=== PATIENT | female | born 1970 | race Caucasian/White ===

== ENCOUNTER 2017-07-29 09:24 | Inpatient (IN) | payer MEDICAID ==
[~2017-07-29] VITALS: Ht 157.5 cm; Wt 106.1 kg
[2017-07-29 10:13] LABS: CALCIUM 8.7 mg/dL (8.5-10.1); CARBON DIOXIDE 22.4 mmol/L (21-32); CHLORIDE SERUM 102 mmol/L (98-107); CREATININE SERUM 0.6 mg/dL (0.6-1.0); GFR1 > 60 mL/min; GLUCOSE SERUM 204 mg/dL (74-106); POTASSIUM SERUM 3.7 mmol/L (3.5-5.1); SODIUM SERUM 137 mmol/L (136-145)
[2017-07-29 10:17] LABS: ALBUMIN 3.3 g/dL (3.4-5.0); ALKALINE PHOSPHATASE 89 U/L (46-116); ALT/SGPT 19 U/L (14-59); AST/SGOT 17 U/L (15-37); BILIRUBIN TOTAL 0.32 mg/dL (0.20-1.00); TOTAL PROTEIN, SERUM 7.9 g/dL (6.4-8.2)
[2017-07-29 10:32] LABS: BASOPHIL % 0.4 % (0-2); PLATELET COUNT 309 x10^3mcL (130-400); RED CELL DISTRIBUTION WIDTH 14.3 % (11.5-14.5)
[2017-07-29 11:26] LABS: AMPHETAMINE QUAL UR NONE DETECTED (NEG <=1000)
[2017-07-29 11:29] LABS: BASOPHIL % 0.3 % (0-2); PLATELET COUNT 292 x10^3mcL (130-400); RED CELL DISTRIBUTION WIDTH 14.1 % (11.5-14.5)
[2017-07-29 11:48] LABS: UA SPECIFIC GRAVITY 1.025 (1.005-1.035); microscopic required? YES; urine erythrocyte 1+ (NEGATIVE)
[2017-07-29] MEDS ORDERED: FLUOXETINE HYDR20 M2 PO (15:40)
[2017-07-29 16:22] LABS: FREE T4 1.11 ng/dL (0.76-1.46); FREE THYROXINE INDEX 2.4 ug/dL (1.4-4.5); T4(THYROXINE) 9.3 ug/dL (4.7-13.3)
[2017-07-29 16:35] LABS: MAGNESIUM 1.7 mg/dL (1.8-2.4)
[2017-07-29 16:48] LABS: T3 TOTAL 0.86 ng/mL
[2017-07-29 17:40] LABS: CALCIUM 8.3 mg/dL (8.5-10.1); CARBON DIOXIDE 22.1 mmol/L (21-32); CHLORIDE SERUM 107 mmol/L (98-107); CREATININE SERUM 0.6 mg/dL (0.6-1.0); GFR1 > 60 mL/min; GLUCOSE SERUM 126 mg/dL (74-106); POTASSIUM SERUM 3.8 mmol/L (3.5-5.1); SODIUM SERUM 142 mmol/L (136-145)
[2017-07-29 19:38] VITALS: BP 147/67
[2017-07-29 19:55] LABS: CALCIUM 8.3 mg/dL (8.5-10.1); CARBON DIOXIDE 22.5 mmol/L (21-32); CHLORIDE SERUM 106 mmol/L (98-107); CREATININE SERUM 0.6 mg/dL (0.6-1.0); GFR1 > 60 mL/min; GLUCOSE SERUM 123 mg/dL (74-106); POTASSIUM SERUM 3.7 mmol/L (3.5-5.1); SODIUM SERUM 140 mmol/L (136-145)
[2017-07-29 19:59] VITALS: Ht 157.5 cm; Wt 106.1 kg
[2017-07-30 05:24] VITALS: BP 118/55
[2017-07-30 07:48] LABS: BASOPHIL % 0.4 % (0-2); PLATELET COUNT 283 x10^3mcL (130-400)
[2017-07-30 08:00] LABS: RED CELL DISTRIBUTION WIDTH 14.6 % (11.5-14.5)
[2017-07-30 08:03] LABS: CALCIUM 8.2 mg/dL (8.5-10.1); CARBON DIOXIDE 20.6 mmol/L (21-32); CHLORIDE SERUM 106 mmol/L (98-107); CREATININE SERUM 0.5 mg/dL (0.6-1.0); GFR1 > 60 mL/min; GLUCOSE SERUM 117 mg/dL (74-106); POTASSIUM SERUM 3.5 mmol/L (3.5-5.1); SODIUM SERUM 139 mmol/L (136-145)
[2017-07-30 09:00] VITALS: BP 130/68
[2017-07-30 12:30] VITALS: BP 128/66
[2017-07-30 17:26] VITALS: BP 119/63
[2017-07-30 20:58] VITALS: BP 125/62
[2017-07-31 05:39] VITALS: BP 120/63
[2017-07-31 09:03] VITALS: BP 120/62
[2017-07-31] MEDS ORDERED: ZOLOFT25 MG PO ×2 (09:33→12:47)
[2017-07-31] MEDS ORDERED: RANITIDINE HCL150 M1 PO ×2 (09:33→12:47)
[2017-07-31 10:01] VITALS: BP 120/62
[2017-07-31 10:48] LABS: BASOPHIL % 0.3 % (0-2); PLATELET COUNT 266 x10^3mcL (130-400)
[2017-07-31 10:55] LABS: RED CELL DISTRIBUTION WIDTH 14.7 % (11.5-14.5)
[2017-07-31 12:25] VITALS: BP 126/57
== END 2017-07-31 14:25 | disposition home or self-care (01) | DRG 812 ==
LOC: ED 09:24 → DU 15:34 → MU 07-31 10:04
PROVIDERS: Family Medicine; Specialist; Student in an Organized Health Care Education/Training Program
DX: T39.011A Poisoning by aspirin, accidental (unintentional), initial encounter (principal); N17.0 Acute kidney failure with tubular necrosis; G92 Toxic encephalopathy; E44.0 Moderate protein-calorie malnutrition; T43.221A Poisoning by selective serotonin reuptake inhibitors, accidental (unintentional), initial encounter; F32.9 Major depressive disorder, single episode, unspecified; R73.03 Prediabetes; F17.210 Nicotine dependence, cigarettes, uncomplicated; E66.9 Obesity, unspecified; R31.9 Hematuria, unspecified; F43.23 Adjustment disorder with mixed anxiety and depressed mood; E83.42 Hypomagnesemia; Z68.37 Body mass index [BMI] 37.0-37.9, adult; Y92.89 Other specified places as the place of occurrence of the external cause
CPT/HCPCS: 83880; 84439; 90715; G0480; J2405; J3475; J7030; J8597; Q0092